=== PATIENT | female | born 1990 | race Caucasian/White ===

== ENCOUNTER 2017-02-26 21:23 | Emergency (ER) | payer BC, MEDICAID ==
[~2017-02-26] VITALS: Ht 149.9 cm; Wt 90.9 kg
[~2017-02-26 21:23] MED LIST: AMITRIPTYLINE H10 M1 PO; BCP TD; BIRTH CONTROL PILLS; CALCIUM + D 5001 TAB PO; CEPHALEXIN500 M1 PO; CIMZIA200 MG/ML SC; CLARITIN 1010 MG/TAB PO; CLEOCIN HCL150 MG PO; COLESTID 1GM1 G PO; FISH OIL SUPER1 SGL PO; GAS RELIEF80 MG PO; GINGER ROOT EX250 MG PO; HUMIRA40 MG/0.8 MR; IMPLANON68 MG ID; KLOR-CON 1010 MEQ PO; LASIX 20MG TABL20 MG PO; LEVAQUIN 250MG250 MG PO; LORTAB 5/500 501 TAB PO; MAG-OX 400400 MG/TAB PO; NO HOME MEDICATIONS; OMNICEF 300MG300 MG PO; PENTASA500 MG PO; POTASSIUM595 MG PO; PREDNISONE20 MG PO; PRIL40 PO; PRILOSEC 20MG20 MG PO; PROAIR HFA0.09 MG/AC IH; PROBIOTICA100 Milli1 PO; REGLAN 10MG10 MG/TAB PO; RITE AID BIO2500 MCG PO; TOPAMAX 25MG25 M1 PO; TRIAMCINOLONE0.1% TP; VENTOLIN0.09 MG IH; WELLBUTRIN 100100 MG PO; ZANTAC 150MG T150 MG PO; ZOFRAN ODT4 MG PO; [UNRECOGNIZED DRUG - REMARK]
[2017-02-26 21:25] VITALS: TEMP 97.9
[2017-02-26] MEDS ORDERED: PENTASA500 MG PO (21:28)
[2017-02-26] MEDS ORDERED: CIMZIA200 MG SC (21:28)
[2017-02-26] MEDS ORDERED: PRIL40 PO (21:29)
[2017-02-26] MEDS ORDERED: KLOR-CON SPRINK8 MEQ PO (21:30)
[2017-02-26] MEDS ORDERED: VITAMIN B COMPL1 T16 PO (21:30)
[2017-02-26] MEDS ORDERED: MASON NATURAL1200 MG PO (21:30)
[2017-02-26 21:56] LABS: PH 5 (5-8); SQUAMOUS EPITHELIAL 0-2 /hpf; URINE APPEARANCE Clear; URINE BACTERIA None Seen /hpf; URINE BILIRUBIN Negative (NEGATIVE); URINE BLOOD 2+ (NEGATIVE); URINE COLOR Yellow; URINE GLUCOSE Negative (NEGATIVE); URINE KETONE Negative (NEGATIVE); URINE RBC 0-2 /hpf; URINE UROBILINOGEN Negative (NEGATIVE); URINE WBC 0-2 /hpf
[2017-02-26 22:25] LABS: BASO # 0.1 (0.0-0.2); BASO % 0.6 % (0.0-2.0); EOS # 0.2 (0.0-0.7); EOS % 1.8 % (0-4.0); GRAN # 6.6 (1.4-6.5); GRAN % 50.7 % (42.2-75.2); HEMOGLOBIN 12.2 g/dl (12.5-16.0); LYMPH # 5.3 (1.2-3.4); LYMPH % 40.7 % (20.0-51.0); MEAN CELL VOLUME 87 fl (80.0-100.0); MEAN CORPUSCULAR HEMOGLOBIN 29 pg (27.0-31.0); MEAN CORPUSCULAR HGB CONC 33 g/dl (33.0-37.0); MEAN PLATELET VOLUME 11.3 fl (7.4-10.4); MONO # 0.8 (0.1-0.6); PLATELET COUNT 289 K/mm3 (130-400); RED BLOOD COUNT 4.25 M/mm3 (4.10-5.30); REDCELL DISTRIBUTION WIDTH-CV 13.4 % (11.5-14.5)
[2017-02-26 22:28] LABS: HEMATOCRIT 36.8 % (37.0-47.0)
[2017-02-26 22:39] LABS: ALBUMIN 4.2 gm/dL (3.5-5.0); BILIRUBIN,TOTAL 0.5 mg/dL (0.0-1.0); C-REACTIVE PROTEIN 0.6 mg/dL (0.0-0.9); CALCIUM 9.2 mg/dL (8.4-10.2); CREATININE, serum 0.65 mg/dL (0.52-1.25); POTASSIUM 3.8 mmol/L (3.4-5.0); TOTAL PROTEIN 7.2 gm/dL (6.4-8.2)
[2017-02-26] MEDS ORDERED: NORCO 325 MG-51 TAB PO (23:40)
[2017-02-27 00:04] VITALS: BP 143/89; PULSE 90
== END 2017-02-27 00:07 | disposition home or self-care (01) ==
LOC: COL.ER 21:23
PROVIDERS: Emergency Medicine
DX: R10.11 Right upper quadrant pain (principal); R10.31 Right lower quadrant pain; K50.90 Crohn's disease, unspecified, without complications; R11.0 Nausea
CPT/HCPCS: J1170; J2405; J7030; Q9967

== ENCOUNTER 2017-03-16 08:09 | Emergency (ER) | payer BC, MEDICAID ==
[~2017-03-16] VITALS: Ht 149.9 cm; Wt 90.9 kg
[~2017-03-16 08:09] MED LIST changes: +CIMZIA200 MG SC; +KLOR-CON SPRINK8 MEQ PO; +MASON NATURAL1200 MG PO; +NORCO 325 MG-51 TAB PO; +VITAMIN B COMPL1 T16 PO
[2017-03-16 08:23] VITALS: TEMP 99.5
[2017-03-16] MEDS ORDERED: PRIL40 PO (08:29)
[2017-03-16] MEDS ORDERED: PENTASA500 MG PO (08:29)
[2017-03-16] MEDS ORDERED: MASON NATURAL1200 MG PO (08:30)
[2017-03-16] MEDS ORDERED: B COMPLEX #11 TA1 PO (08:31)
[2017-03-16] MEDS ORDERED: MICRO-K EXTENCA8 MEQ PO (08:31)
[2017-03-16 09:16] LABS: BASO % 0.4 % (0.0-2.0); EOS # 0.1 (0.0-0.7); GRAN # 5.5 (1.4-6.5); GRAN % 55.1 % (42.2-75.2); HEMATOCRIT 38.3 % (37.0-47.0); HEMOGLOBIN 12.5 g/dl (12.5-16.0); LYMPH # 3.5 (1.2-3.4); LYMPH % 35.3 % (20.0-51.0); MEAN CELL VOLUME 87 fl (80.0-100.0); MEAN CORPUSCULAR HEMOGLOBIN 29 pg (27.0-31.0); MEAN CORPUSCULAR HGB CONC 33 g/dl (33.0-37.0); MEAN PLATELET VOLUME 11.4 fl (7.4-10.4); MONO # 0.8 (0.1-0.6); MONO % 7.9 % (1.7-9.3); PLATELET COUNT 256 K/mm3 (130-400); RED BLOOD COUNT 4.39 M/mm3 (4.10-5.30); REDCELL DISTRIBUTION WIDTH-CV 13.5 % (11.5-14.5); WHITE BLOOD COUNT 9.9 K/mm3 (4.8-10.8)
[2017-03-16 09:24] LABS: ADJUSTED CALCIUM 9.2 mg/dL (8.4-10.2); ALBUMIN 4.2 gm/dL (3.5-5.0); BILIRUBIN,TOTAL 0.5 mg/dL (0.0-1.0); C-REACTIVE PROTEIN 1.1 mg/dL (0.0-0.9); CALCIUM 9.4 mg/dL (8.4-10.2); CREATININE, serum 0.62 mg/dL (0.52-1.25); POTASSIUM 3.9 mmol/L (3.4-5.0); TOTAL PROTEIN 7.3 gm/dL (6.4-8.2)
[2017-03-16 09:38] LABS: PH 5 (5-8); SQUAMOUS EPITHELIAL 0-2 /hpf; URINE APPEARANCE Clear; URINE BACTERIA None Seen /hpf; URINE BILIRUBIN Negative (NEGATIVE); URINE BLOOD 1+ (NEGATIVE); URINE COLOR Yellow; URINE GLUCOSE Negative (NEGATIVE); URINE KETONE Negative (NEGATIVE); URINE RBC 0-2 /hpf; URINE UROBILINOGEN Negative (NEGATIVE); URINE WBC 0-2 /hpf
[2017-03-16] MEDS ORDERED: ULTRAM 50MG TAB50 MG PO (10:12)
[2017-03-16 10:45] VITALS: BP 114/70; PULSE 80
== END 2017-03-16 10:59 | disposition home or self-care (01) ==
LOC: COL.ER 08:09
PROVIDERS: Physician Assistant
DX: R10.11 Right upper quadrant pain (principal); R11.0 Nausea; R63.0 Anorexia; K50.90 Crohn's disease, unspecified, without complications
CPT/HCPCS: J1885; J2405; J7030

== ENCOUNTER 2017-07-11 18:41 | Emergency (ER) | payer BC, MEDICAID ==
[~2017-07-11] VITALS: Ht 147.3 cm; Wt 104.5 kg
[~2017-07-11 18:41] MED LIST changes: +B COMPLEX #11 TA1 PO; +MICRO-K EXTENCA8 MEQ PO; +ULTRAM 50MG TAB50 MG PO
[2017-07-11 18:47] VITALS: BP 163/70; TEMP 98
[2017-07-11] MEDS ORDERED: CIMZIA200 MG/ML SQ (18:51)
[2017-07-11] MEDS ORDERED: FLAGYL500 MG PO (18:52)
[2017-07-11] MEDS ORDERED: CIPRO 500MG TA500 MG PO (18:52)
[2017-07-11 19:39] VITALS: PULSE 102
== END 2017-07-11 19:40 | disposition home or self-care (01) ==
LOC: COL.ER 18:41
DX: K61.1 Rectal abscess (principal); K50.90 Crohn's disease, unspecified, without complications
CPT/HCPCS: J1170; J2550

== ENCOUNTER 2019-04-26 18:44 | Emergency (ER) | payer SELFPAY ==
[~2019-04-26] VITALS: Ht 149.9 cm; Wt 109.1 kg
[~2019-04-26 18:44] MED LIST changes: +CIMZIA200 MG/ML SQ; +CIPRO 500MG TA500 MG PO; +FLAGYL500 MG PO
[2019-04-26 18:47] VITALS: TEMP 96.9
[2019-04-26] MEDS ORDERED: NORCO 325 MG-51 TAB PO (19:19)
[2019-04-26] MEDS ORDERED: AMOXICILLIN 50500 MG PO (19:19)
[2019-04-26 19:24] VITALS: BP 164/81; PULSE 94
== END 2019-04-26 19:24 | disposition home or self-care (01) ==
LOC: COL.ER 18:44
DX: K02.9 Dental caries, unspecified (principal); J45.909 Unspecified asthma, uncomplicated; G43.909 Migraine, unspecified, not intractable, without status migrainosus; I10 Essential (primary) hypertension; K50.90 Crohn's disease, unspecified, without complications; F17.210 Nicotine dependence, cigarettes, uncomplicated

== ENCOUNTER 2019-10-28 19:19 | Emergency (ER) | payer BC ==
[~2019-10-28] VITALS: Ht 149.9 cm; Wt 113.6 kg
[~2019-10-28 19:19] MED LIST changes: +AMOXICILLIN 50500 MG PO
[2019-10-28 19:28] VITALS: TEMP 100.6
[2019-10-28] MEDS ORDERED: CLARITIN 1010 MG/TAB PO (19:42)
[2019-10-28 20:21] LABS: COLLECTION METHOD CLEAN CATCH
[2019-10-28 20:28] LABS: BASO % 0.3 % (0.0-2.0); EOS % 0.3 % (0-4.0); GRAN % 75.7 % (42.2-75.2); HEMOGLOBIN 13.2 g/dl (12.5-16.0); LYMPH % 16.4 % (20.0-51.0); MEAN CELL VOLUME 90 fl (80.0-100.0); MEAN CORPUSCULAR HEMOGLOBIN 29 pg (27.0-31.0); MEAN CORPUSCULAR HGB CONC 32 g/dl (33.0-37.0); MEAN PLATELET VOLUME 10.5 fl (7.4-10.4); MONO # 0.8 (0.1-0.6); PLATELET COUNT 309 K/mm3 (130-400); RED BLOOD COUNT 4.57 M/mm3 (4.10-5.30); REDCELL DISTRIBUTION WIDTH-CV 13.3 % (11.5-14.5)
[2019-10-28 20:30] LABS: MUCOUS Present /lpf; PH 8 (5-8); SQUAMOUS EPITHELIAL 0-2 /hpf; URINE APPEARANCE Clear; URINE BACTERIA None Seen /hpf; URINE BILIRUBIN Negative (NEGATIVE); URINE BLOOD Negative (NEGATIVE); URINE COLOR Yellow; URINE GLUCOSE Negative (NEGATIVE); URINE KETONE Negative (NEGATIVE); URINE LEUKOCYTE ESTERASE Negative (NEGATIVE); URINE NITRATE Negative (NEGATIVE); URINE PROTEIN(semi-quant) 1+ (NEGATIVE); URINE UROBILINOGEN Negative (NEGATIVE); URINE WBC 0-2 /hpf
[2019-10-28 20:37] LABS: ALBUMIN 4.5 gm/dL (3.5-5.0); BILIRUBIN,TOTAL 0.3 mg/dL (0.0-1.0); CALCIUM 9.1 mg/dL (8.4-10.2); CREATININE, serum 0.65 (0.52-1.25); POTASSIUM 3.8 mmol/L (3.4-5.0); TOTAL PROTEIN 8.1 gm/dL (6.4-8.2)
[2019-10-28] MEDS ORDERED: DOXYCYCLINE HY100 MG PO (22:50)
[2019-10-28] MEDS ORDERED: COMPAZINE 110 MG/TAB PO (22:52)
[2019-10-28 22:59] VITALS: BP 134/65; PULSE 100
== END 2019-10-28 23:31 | disposition home or self-care (01) ==
LOC: COL.ER 19:19
PROVIDERS: Emergency Medicine
DX: J18.9 Pneumonia, unspecified organism (principal); R51 Headache; K50.90 Crohn's disease, unspecified, without complications; K21.9 Gastro-esophageal reflux disease without esophagitis; Z87.891 Personal history of nicotine dependence; Z86.69 Personal history of other diseases of the nervous system and sense organs
CPT/HCPCS: J0780; J1200; J2405; J7030